=== PATIENT | female | born 1990 | race Caucasian/White ===

== ENCOUNTER 2016-07-06 20:16 | Emergency (ER) | payer SELFPAY ==
[2016-07-06 21:53] VITALS: BP 120/83
[2016-07-06] MEDS ORDERED: guaiFENesin/CODIEN 100MG-10MG* 5 ML UDC PO ONE (22:18)
[2016-07-06] MEDS ORDERED: Albuterol HFA INHALER* 8 gm MDI INH ONE (22:19)
[2016-07-06] MEDS ORDERED: predniSONE TAB* 20 MG PO ONE ×2 (22:19)
--- NOTE | 2016-07-06 22:28 | UC ---
Respiratory Complaint HPI - HPI Summary HPI Summary: Patient arrives to with CC of cough x 2 weeks. She states the cough comes in waves and she experiences SOB. She denies wheezing, mucous production, sputum, rhinorrhea, AGUIRRE or N/V/C/D. Denies neck pain. Patient is a teacher and endorses sick contacts. Denies travel. She states this happens about once per year and needs to be placed on a steroid for relief. She has associated insomnia d/t cough. - History of Current Complaint Chief Complaint: UCGeneralIllness Stated Complaint: COUGH Time Seen by Provider: 07/06/16 21:54 Hx Obtained From: Patient Hx Last Menstrual Period: 06/30/16 Onset/Duration: Gradual Onset Timing: Constant Severity Initially: Severe Severity Currently: Severe Pain Intensity: 3 Pain Scale Used: 0-10 Numeric Character: Cough: Nonproductive Aggravating Factors: Allergens, Recumbent Position Alleviating Factors: Bronchodilator, Upright Position Associated Signs And Symptoms: Positive: Dyspnea, URI - Risk Factors Pulmonary Embolism Risk Factors: Negative Cardiac Risk Factors: Negative Pseudomonas Risk Factors: Negative Tuberculosis Risk Factors: Corticosteriod Use - Allergies/Home Medications Allergies/Adverse Reactions: Allergies Allergy/AdvReac Type Severity Reaction Status Date / Time Gluten Meal Allergy Severe GI Upset Verified 07/06/16 21:54 nickel Allergy Rash Uncoded 07/06/16 21:54 Home Medications: Home Medications Loratadine [Claritin 10 MG CAP] 10 mg PO DAILY 07/06/16 [History Confirmed 07/06] Triease 1 cap PO DAILY PRN 07/06/16 [History] PMH/Surg Hx/FS Hx/Imm Hx Previously Healthy: Yes Respiratory History Of: Reports: Asthma - Surgical History Surgical History: Yes Surgery Procedure, Year, and Place: b/L breast bx - Family History Known Family History: Positive: None - Social History Occupation: Employed Full-time Lives: With Family Alcohol Use: Rare Substance Use Type: None Smoking Status (MU): Never Smoked Tobacco Review of Systems Constitutional: Fatigue Skin: Negative ENT: Negative Respiratory: Shortness Of Breath, Cough Cardiovascular: Negative Motor: Negative Neurovascular: Negative Musculoskeletal: Negative Neurological: Negative All Other Systems Reviewed And Are Negative: Yes Physical Exam Triage Information Reviewed: Yes Appearance: Well-Appearing, No Pain Distress, Well-Nourished Vital Signs: Initial Vital Signs Temp 98.8 F 07/06/16 21:47 Pulse 99 07/06/16 21:47 Resp 12 07/06/16 21:47 BP 120/83 07/06/16 21:47 Pulse Ox 100 07/06/16 21:47 Vital Signs Reviewed: Yes Eye Exam: Normal Eyes: Positive: Conjunctiva Clear, Conjunctiva Inflamed ENT: Positive: Normal ENT inspection, TMs normal Dental Exam: Normal Neck exam: Normal Neck: Positive: Supple, Nontender Respiratory Exam: Normal Respiratory: Positive: Chest non-tender, Lungs clear Cardiovascular Exam: Normal Abdominal Exam: Normal Musculoskeletal Exam: Normal Musculoskeletal: Positive: Strength Intact Neurological Exam: Normal Neurological: Positive: Alert Psychological Exam: Normal Psychological: Positive: Normal Response To Family Skin Exam: Normal UC Diagnostic Evaluation - Laboratory O2 Sat by Pulse Oximetry: 100 Respiratory Course/Dx - Course Course Of Treatment: Patient arrives with CC of cough. Rx for albuterol inhaler , robitussin with codeine, and prednisone. Robitussin with codeine 10ml dispensed to home as well as albuterol inhaler. encouraged follow up if symptoms persist. - Differential Dx/Diagnosis Differential Diagnosis/HQI/PQRI: Influenza, Lower Resp Infection, Sinusitis, Other - cough Provider Diagnoses: cough Discharge - Discharge Plan Condition: Stable Disposition: HOME Prescriptions: guaiFENesin/CODIEN 100MG-10MG* [Robitussin AC 100Mg-10Mg*] 10 ml PO Q4H PRN # 180 udc MDD 60 PRN Reason: Cough predniSONE TAB* [Deltasone TAB*] 50 mg PO DAILY #5 tab MDD 1 Patient Education Materials: Acute Cough (ED) Referrals: Non Staff,Doctor [Primary Care Provider] - Additional Instructions: Drink plenty of fluids. A humidifier in the home can help with congestion during the colder months. Take any medication prescribed to you as directed. If you have any questions regarding your medications, you may call the office or your pharmacist. If your symptoms fail to improve or worsen, please call your primary care provider, come back to urgent care or the emergency room. Do not drive while on cough medication. Albuterol inhaler as needed for cough and shortness of breath
== END 2016-07-06 22:39 | disposition home or self-care (01) ==
LOC: UCCORT 20:16
DX: R05 Cough (principal); J45.909 Unspecified asthma, uncomplicated
CPT/HCPCS: 99213; A9270-GY; G0463; J7512

== ENCOUNTER 2017-05-26 11:45 | Emergency (ER) | payer OTHER ==
[2017-05-26 14:27] VITALS: BP 127/81
--- NOTE | 2017-05-26 14:40 | UC ---
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 - History of Current Complaint Chief Complaint: UCLowerExtremity Stated Complaint: WC-LFT FOOT INJURY Time Seen by Provider: 05/26/17 14:30 Hx Obtained From: Patient Hx Last Menstrual Period: 05/20/17 Onset/Duration: Sudden Onset Severity Initially: Moderate Severity Currently: Moderate Pain Intensity: 4 Pain Scale Used: 0-10 Numeric Aggravating Factor(s): Standing Alleviating Factor(s): Rest Able to Bear Weight: Yes - Allergies/Home Medications Allergies/Adverse Reactions: Allergies Allergy/AdvReac Type Severity Reaction Status Date / Time gluten Allergy GI Upset Verified 05/26/17 14:21 nickel Allergy Rash Uncoded 05/26/17 14:21 Home Medications: Home Medications Doterra 4 cap PO DAILY 05/26/17 [History] Ibuprofen [Advil] 400 mg PO ONCE PRN 05/26/17 [History Confirmed 05/26/17] PMH/Surg Hx/FS Hx/Imm Hx Previously Healthy: Yes - Surgical History Surgical History: Yes Surgery Procedure, Year, and Place: b/L breast bx - Family History Known Family History: Positive: None, Hypertension, Diabetes Negative: Cardiac Disease - Social History Alcohol Use: Rare Substance Use Type: None Smoking Status (MU): Never Smoked Tobacco Review of Systems Constitutional: Negative Skin: Negative Eyes: Negative ENT: Negative Respiratory: Negative Cardiovascular: Negative Gastrointestinal: Negative Genitourinary: Negative Motor: Negative Neurovascular: Negative Musculoskeletal: Arthralgia Neurological: Negative Psychological: Negative Is Patient Immunocompromised?: No All Other Systems Reviewed And Are Negative: Yes Physical Exam Triage Information Reviewed: Yes Appearance: Well-Appearing, No Pain Distress, Well-Nourished Vital Signs: Initial Vital Signs Temp 99.1 F 05/26/17 14:23 Pulse 94 05/26/17 14:23 Resp 16 05/26/17 14:23 BP 127/81 05/26/17 14:23 Pulse Ox 100 05/26/17 14:23 Vital Signs Reviewed: Yes Eyes: Positive: Conjunctiva Clear ENT: Negative: Nasal congestion, Nasal drainage, Trismus, Muffled voice Neck: Positive: Supple, Nontender, No Lymphadenopathy Respiratory: Positive: Lungs clear, Normal breath sounds, No respiratory distress, No accessory muscle use Cardiovascular: Positive: RRR, No Murmur Musculoskeletal: Positive: ROM Intact, No Edema Neurological: Positive: Alert Psychological Exam: Normal Skin Exam: Normal Diagnostics - Radiology No standard instances Xray Interpretation: No Acute Changes Radiology Interpretation Completed By: Radiologist Lower Extremity Course/Dx - Differential Dx/Diagnosis Provider Diagnoses: left great toe sprain vs overuse injury vs other Discharge - Discharge Plan Condition: Stable Disposition: HOME Patient Education Materials: Sprain (ED) Referrals: Jez Kaur MD [Medical Doctor] - Additional Instructions: ice I suggest you see an orthopedist
--- NOTE | 2017-05-26 15:00 | RAD ---
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 FINDINGS: The visualized bones are normal alignment. Joint spaces appear maintained. No fracture is seen. IMPRESSION: NO EVIDENCE FOR FRACTURE. IF THE PATIENT'S SYMPTOMS PERSIST RECOMMEND FOLLOW-UP IMAGING.
== END 2017-05-26 15:31 | disposition home or self-care (01) ==
LOC: UCCORT 11:45
DX: M79.675 Pain in left toe(s) (principal); X50.9XXA Other and unspecified overexertion or strenuous movements or postures, initial encounter; Y93.41 Activity, dancing; Y92.89 Other specified places as the place of occurrence of the external cause; Y99.0 Civilian activity done for income or pay
CPT/HCPCS: 99211; G0463

== ENCOUNTER 2018-01-07 09:58 | Emergency (ER) | payer SELFPAY ==
[2018-01-07 10:47] VITALS: BP 132/81
--- NOTE | 2018-01-07 11:13 | UC ---
General HPI - HPI Summary HPI Summary: Patient is complaining of 5 day history of cough. She states that her home is currently being renovated plus she has allergies and she thinks it is all causing an asthma flare. She denies any associated fever or chills but reports having some shortness of breath and wheezing. She is using her rescue inhaler with temporary relief. - History of Current Complaint Chief Complaint: UCRespiratory Stated Complaint: SORE THROAT Time Seen by Provider: 01/07/18 10:37 Hx Obtained From: Patient Hx Last Menstrual Period: 01/02/18 Onset/Duration: Gradual Onset Pain Intensity: 0 Associated Signs & Symptoms: Positive: Cough, SOB, Wheezing. Negative: Fever - Allergy/Home Medications Allergies/Adverse Reactions: Allergies Allergy/AdvReac Type Severity Reaction Status Date / Time gluten Allergy GI Upset Verified 01/07/18 10:41 nickel Allergy Rash Verified 01/07/18 10:41 Home Medications: Home Medications Albuterol HFA INHALER* [Ventolin HFA Inhaler*] 1 - 2 puff INH Q4H PRN 01/07/18 [ History Confirmed 01/07/18] Ibuprofen TAB* [Advil TAB*] 200 - 600 mg PO Q6H PRN 01/07/18 [History Confirmed 01/07/18] PMH/Surg Hx/FS Hx/Imm Hx Respiratory History: Asthma - Surgical History Surgical History: Yes Surgery Procedure, Year, and Place: b/L breast bx - Family History Known Family History: Positive: None, Hypertension, Diabetes Negative: Cardiac Disease - Social History Occupation: Employed Full-time Lives: With Family Alcohol Use: Rare Substance Use Type: None Smoking Status (MU): Never Smoked Tobacco - Immunization History Vaccination Up to Date: Yes Review of Systems Constitutional: Negative Skin: Negative Eyes: Negative ENT: Sore Throat - Intermittent throat irritation with postnasal drip Respiratory: Shortness Of Breath, Cough Cardiovascular: Negative Gastrointestinal: Negative Genitourinary: Negative Motor: Negative Neurovascular: Negative Musculoskeletal: Negative Neurological: Negative Psychological: Negative Is Patient Immunocompromised?: No All Other Systems Reviewed And Are Negative: Yes Physical Exam Triage Information Reviewed: Yes Appearance: Well-Appearing Vital Signs: Initial Vital Signs Temp 98.3 F 01/07/18 10:39 Pulse 90 01/07/18 10:39 Resp 16 01/07/18 10:39 BP 132/81 01/07/18 10:39 Pulse Ox 100 01/07/18 10:39 Vital Signs Reviewed: Yes Eyes: Positive: Conjunctiva Clear ENT: Positive: Pharynx normal, TMs normal. Negative: Nasal congestion, Nasal drainage Neck: Positive: Supple, Nontender, No Lymphadenopathy Respiratory: Positive: Lungs clear, No accessory muscle use, Decreased breath sounds Cardiovascular: Positive: RRR, No Murmur Abdomen Description: Positive: Nontender, No Organomegaly, Soft Bowel Sounds: Positive: Present Musculoskeletal: Positive: ROM Intact Neurological: Positive: Alert Psychological: Positive: Age Appropriate Behavior Skin Exam: Normal Course/Dx - Course Course Of Treatment: No concern for pneumonia or bacterial infection. History and physical exam consistent with asthma flare we'll treat with short course of steroids in routine use of rescue inhaler plus close follow-up with primary care - Differential Dx - Multi-Symptom Provider Diagnoses: asthma flare Discharge - Sign-Out/Discharge Documenting (check all that apply): Patient Departure All imaging exams completed and their final reports reviewed: No Studies - Discharge Plan Condition: Stable Disposition: HOME Prescriptions: Albuterol HFA INHALER* [Ventolin HFA Inhaler*] 2 puff INH Q6H #1 mdi predniSONE TAB* [Deltasone 20 MG TAB*] 40 mg PO DAILY 5 Days #10 tab Patient Education Materials: Asthma (ED) Referrals: Jeffrey Carrera DO [Primary Care Provider] - 7 Days - Billing Disposition and Condition Condition: STABLE Disposition: Home
== END 2018-01-07 11:19 | disposition home or self-care (01) ==
LOC: UCCORT 09:58
DX: J45.909 Unspecified asthma, uncomplicated (principal)
CPT/HCPCS: 99212; G0463

== ENCOUNTER 2018-01-24 07:57 | Emergency (ER) | payer SELFPAY ==
--- NOTE | 2018-01-24 08:18 | UC ---
Respiratory Complaint HPI - HPI Summary HPI Summary: 27-year-old female presents with 4 day history of sinus congestion, sore throat , and a productive cough. Seen 01/08/1028 at this facility for asthma flare. Treated with albuterol inhaler and 5 day course of prednisone. He states that her symptoms the previous visit did improve however never completely subsided. Sputum has changed from clear/white to a thick green color. Denies fever, chills , ear pain or pressure, nasal discharge, chest pain, shortness of breath, wheezing, abdominal pain, nausea, or vomiting. - History of Current Complaint Chief Complaint: UCGeneralIllness Stated Complaint: SINUSES,COUGH Time Seen by Provider: 01/24/18 08:09 Hx Obtained From: Patient Hx Last Menstrual Period: 01/23/18 ?: No Onset/Duration: Gradual Onset, Lasting Days - 4 Severity Currently: Moderate Pain Intensity: 2 Character: Cough: Productive, Sputum Description: - green Aggravating Factors: Deep Breaths Alleviating Factors: Nothing Associated Signs And Symptoms: Positive: URI, Nasal Congestion, Sinus Discomfort. Negative: Dyspnea, Fever, Chills, Pleuritic Chest Pain, Wheezing, Hemoptysis, Dizziness, Calf Pain, Calf Swelling, Edema, Hoarseness - Allergies/Home Medications Allergies/Adverse Reactions: Allergies Allergy/AdvReac Type Severity Reaction Status Date / Time gluten Allergy GI Upset Verified 01/07/18 10:41 nickel Allergy Rash Verified 01/07/18 10:41 Home Medications: Home Medications Dm/Acetaminophen/Doxylamine [Night Cold-Flu Relief Liq Gel] 1 each PO ONCE 01/24 [History Confirmed 01/24/18] PMH/Surg Hx/FS Hx/Imm Hx Previously Healthy: Yes Respiratory History: Asthma - Surgical History Surgical History: Yes Surgery Procedure, Year, and Place: b/L breast bx - Family History Known Family History: Positive: None, Hypertension, Diabetes Negative: Cardiac Disease - Social History Occupation: Employed Full-time Lives: With Family Alcohol Use: Rare Substance Use Type: None Smoking Status (MU): Never Smoked Tobacco - Immunization History Vaccination Up to Date: Yes Review of Systems Constitutional: Negative Skin: Negative Eyes: Negative ENT: Sore Throat, Nasal Discharge, Sinus Congestion Respiratory: Cough Cardiovascular: Negative Gastrointestinal: Negative Is Patient Immunocompromised?: No All Other Systems Reviewed And Are Negative: Yes Physical Exam Triage Information Reviewed: Yes Appearance: Well-Appearing, No Pain Distress, Well-Nourished Vital Signs: Initial Vital Signs Temp 98.4 F 01/24/18 08:09 Pulse 122 01/24/18 08:09 Resp 16 01/24/18 08:09 BP 130/79 01/24/18 08:09 Pulse Ox 99 01/24/18 08:09 Eyes: Positive: Conjunctiva Clear. Negative: Discharge ENT: Positive: Pharyngeal erythema - Mild with cobblestoning, Nasal congestion, TMs normal, Sinus tenderness - frontal, Uvula midline. Negative: Nasal drainage , Tonsillar swelling, Tonsillar exudate Neck: Positive: Supple, Nontender, No Lymphadenopathy Respiratory: Positive: Chest non-tender, Lungs clear, Normal breath sounds, No respiratory distress Cardiovascular: Positive: RRR, No Murmur, Tachycardia Neurological: Positive: Alert Skin Exam: Normal UC Diagnostic Evaluation - Laboratory O2 Sat by Pulse Oximetry: 99 Respiratory Course/Dx - Course Course Of Treatment: 27-year-old female presents with 4 day history of worsening of upper respiratory symptoms. She was previously seen here on 2017 and treated for an asthma exacerbation. States her symptoms were improving but never completely subsided. She is noted over the last 4 days that her cough is worsened, her sputum has changed from a clear white to a thick green consistency, and she has had sinus congestion and pressure. Afebrile. Considering the worsening of her symptoms and change in sputum concerned about a secondary bacterial infection and will treat her for an acute sinusitis with Augmentin twice a day 10 days. Also recommend symptomatic treatment with continued use of saline rinses and will start her on a fluticasone nasal spray. She is to follow-up with her primary care provider in 7 days if symptoms persist. Warning symptoms were reviewed with the patient. She verbalizes understanding and agrees with plan of care. - Differential Dx/Diagnosis Provider Diagnoses: acute frontal sinusitis Discharge - Sign-Out/Discharge Documenting (check all that apply): Patient Departure All imaging exams completed and their final reports reviewed: No Studies - Discharge Plan Condition: Stable Disposition: HOME Prescriptions: Amoxicillin/Clavulanate TAB* [Augmentin TAB 875*] 875 mg PO BID #20 tab Fluticasone NASAL SPRAY 50MCG* [Flonase NASAL SPRAY 50MCG*] 2 spray BOTH NARES DAILY #1 btl Patient Education Materials: Sinusitis (ED) Referrals: Jeffrey Carrera DO [Primary Care Provider] - 7 Days (If symptoms do not improve ) Additional Instructions: Since your previous symptoms were improving but are now getting worse I am concerned nadya you may have developed a secondary bacterial sinus infection and will treat you with an antibiotic. Start Augmentin 1 tab twice daily for 10 days. Take with food to avoid upset stomach. Be sure to complete the entire course even if you are feeling better. Continue using your Destini pot at least twice daily. Start fluticasone (Flonase) 2 sprays each nostril once daily. Follow-up with your primary care provider in 7 days if symptoms persist. Seek immediate medical attention if you develop a fever greater than 100.5 F, have a sudden severe headache, become weak or dizzy, develop chest pain, shortness of breath that is not relieved with your albuterol inhaler, or any worsening of symptoms. - Billing Disposition and Condition Condition: STABLE Disposition: Home
[2018-01-24 08:39] VITALS: BP 129/76
== END 2018-01-24 08:43 | disposition home or self-care (01) ==
LOC: UCCORT 07:57
DX: J01.10 Acute frontal sinusitis, unspecified (principal); J45.909 Unspecified asthma, uncomplicated; L23.0 Allergic contact dermatitis due to metals; Z91.018 Allergy to other foods
CPT/HCPCS: 99212; G0463

== ENCOUNTER 2018-06-07 18:17 | Emergency (ER) | payer BC ==
[2018-06-07 19:38] VITALS: BP 135/79
--- NOTE | 2018-06-07 19:49 | UC ---
UC General HPI - HPI Summary HPI Summary: PT C/O SUDDEN BODYACHES, HEADACHE AND A COUGH. SHE WOULD LIKE FLU TESTING. SHE WAS EXPOSED TO THE FLU THIS WEEKEND. + HX ASTHMA. - History of Current Complaint Chief Complaint: UCGeneralIllness Stated Complaint: BODY ACHES/COUGH/CONGESTION Time Seen by Provider: 06/07/18 19:29 Hx Obtained From: Patient Hx Last Menstrual Period: 05/06/18 Onset/Duration: Sudden Onset Timing: Constant Pain Intensity: 0 Aggravating: EXERTION Associated Signs & Symptoms: Negative: Chest Pain, Diarrhea, Vomiting - Allergy/Home Medications Allergies/Adverse Reactions: Allergies Allergy/AdvReac Type Severity Reaction Status Date / Time gluten Allergy GI Upset Verified 06/07/18 19:38 nickel Allergy Rash Verified 06/07/18 19:38 PMH/Surg Hx/FS Hx/Imm Hx Respiratory History: Asthma - Surgical History Surgical History: Yes Surgery Procedure, Year, and Place: b/L breast bx - Family History Known Family History: Positive: None, Hypertension, Diabetes Negative: Cardiac Disease - Social History Occupation: Employed Full-time Alcohol Use: Rare Substance Use Type: None Smoking Status (MU): Never Smoked Tobacco - Immunization History Vaccination Up to Date: Yes Review of Systems All Other Systems Reviewed And Are Negative: Yes Respiratory: Positive: Shortness Of Breath, Cough Musculoskeletal: Positive: Myalgia Neurological: Positive: Headache Physical Exam Triage Information Reviewed: Yes Appearance: Well-Appearing Vital Signs: Initial Vital Signs Temp 98.4 F 06/07/18 19:30 Pulse 115 06/07/18 19:30 Resp 16 06/07/18 19:30 BP 135/79 06/07/18 19:30 Pulse Ox 99 06/07/18 19:30 Vital Signs Reviewed: Yes Eyes: Positive: Conjunctiva Clear ENT: Positive: Pharynx normal, TMs normal. Negative: Nasal congestion, Nasal drainage Neck: Positive: Supple, Nontender, No Lymphadenopathy Respiratory: Positive: Lungs clear, Normal breath sounds Cardiovascular: Positive: No Murmur, Tachycardia Abdomen Description: Positive: Nontender, No Organomegaly, Soft Bowel Sounds: Positive: Present Musculoskeletal: Positive: ROM Intact Neurological: Positive: Alert Psychological: Positive: Age Appropriate Behavior Skin Exam: Normal Skin: Negative: Rashes Course/Dx - Course Course Of Treatment: RAPID FLU=NEG - Differential Dx - Multi-Symptom Differential Diagnoses: Other - ASTHMA, PNEUMONIA, BRONCHITIS, VIRAL SYNDROM/ INFLUENZA/ iILI - Diagnoses Provider Diagnosis: Influenza-like illness Discharge - Sign-Out/Discharge Documenting (check all that apply): Patient Departure All imaging exams completed and their final reports reviewed: No Studies - Discharge Plan Condition: Stable Disposition: HOME Prescriptions: Albuterol HFA INHALER* [Ventolin HFA Inhaler*] 2 puff INH Q6H #1 mdi Oseltamivir CAP* [Tamiflu CAP*] 75 mg PO BID 5 Days #10 cap predniSONE [Prednisone 20 MG TAB] 40 mg PO DAILY 5 Days #10 tablet Patient Education Materials: Asthma (DC), Influenza (DC) Referrals: Jeffrey Carrera DO [Primary Care Provider] - 7 Days - Billing Disposition and Condition Condition: STABLE Disposition: Home - Attestation Statements Provider Attestation: Per institutional requirements, I have reviewed the chart, however, I was not consulted specifically or made aware of this patient by the midlevel provider. I did not personally evaluate, interact with , or disposition this patient.
[2018-06-07 20:01] LABS: Influenza A Molecular NEGATIVE (Negative); Influenza B Molecular NEGATIVE (Negative)
== END 2018-06-07 20:08 | disposition home or self-care (01) ==
LOC: UCCORT 18:17
DX: J11.1 Influenza due to unidentified influenza virus with other respiratory manifestations (principal); J45.909 Unspecified asthma, uncomplicated; Z91.018 Allergy to other foods; Z91.09 Other allergy status, other than to drugs and biological substances
CPT/HCPCS: 99212; G0463